=== PATIENT | female | born 1950 | race Caucasian/White ===

== ENCOUNTER 2017-08-19 14:06 | Inpatient (IN) ==
[2017-08-19] MEDS ORDERED: NORMAL SALINE 10 ML SYRINGE FLUSH IVP PRN ×4 (14:18→22:59)
[2017-08-19] MEDS ORDERED: fentaNYL Inj 100 MCG/2 ML VIAL IVP ONE (14:18)
[2017-08-19] MEDS ORDERED: Sodium Chloride 0.9% 1,000 ML PRIMARY IV ONE (14:18)
[2017-08-19] MEDS ORDERED: CEFAZOLIN IV ONE ×2 (14:18→22:59)
[2017-08-19] MEDS ORDERED: DIPH,PERTUSS,TET(ADACEL) VAC/PF 0.5 ML (Tdap) IM ONE (14:18)
[2017-08-19 14:42] LABS: BASOPHILS # (AUTO) 0.04 10*3/UL; BASOPHILS % (AUTO) 0.3 % (0-1); EOSINOPHILS # (AUTO) 0.11 10*3/UL; EOSINOPHILS % (AUTO) 0.8 % (0-8); Hematocrit [HCT] 38.3 % (37.0-47.0); Hemoglobin [HGB] 12.2 g/dL (12.0-16.0); LYMPHOCYTES # (AUTO) 1.38 10*3/uL; MEAN CORPUSCULAR HEMOGLOBIN 26.1 PG (27-31); MEAN CORPUSCULAR HGB CONC 31.9 g/dL (33-37); MEAN CORPUSCULAR VOLUME 81.8 FL (81-99); MEAN PLATELET VOLUME 10.1 FL (7.4-12.2); MONOCYTES # (AUTO) 0.79 10*3/UL (0.3-0.8); NEUTROPHILS # (AUTO) 10.88 10*3/UL; NEUTROPHILS % (AUTO) 82.2 % (50-80); RED BLOOD COUNT 4.68 10^6/uL (4.20-5.40)
[2017-08-19 14:43] LABS: PLATELET MORPHOLOGY COMMENT NORMAL MORPHOLOGY (NORM); RBC MORPHOLOGY COMMENT NORMAL MORPHOLOGY (NORM); WBC MORPHOLOGY COMMENT NORMAL MORPHOLOGY (NORM)
[2017-08-19 14:54] LABS: BLOOD UREA NITROGEN 17 mg/dL (7-22); BUN/CREATININE RATIO 21.25 (6-20); LIPASE 101 IU/L (23-300); SERUM ALBUMIN 3.7 g/dL (3.5-4.8)
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
--- NOTE | 2017-08-19 15:22 | EKG ---
[address] [address] Measurements Intervals Mcgraw Rate: 68 P: 50 NM: 163 QRS: 9 QRSD: 89 T: 49 QT: 392 QTc: 408 Interpretive Statements SINUS RHYTHM No previous ECG available for comparison Electronically Signed On 08-20-17 10:10:15 MDT by Dov Coats MD [email or web address]
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
[2017-08-19 15:59] LABS: BILIRUBIN,URINE NEGATIVE (NEG); CLARITY,URINE Slightly Cloudy (CLEAR); COLOR,URINE YELLOW (Y); GLUCOSE, URINE (UA) NEGATIVE (NEG); NITRATE,URINE POSITIVE (NEG); OCCULT BLOOD,URINE Trace-lysed (NEG); PH,URINE 5.5 (5.0-8.5); PROTEIN,URINE NEGATIVE (NEG); UROBILINOGEN,URINE 0.2 EU/dL (0.2)
[2017-08-19 16:01] LABS: URINE SAMPLE TYPE CATH SPECIMEN
[2017-08-19 16:02] LABS: BACTERIA,URINE MANY; RBC,URINE 0-2 /hpf
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
[2017-08-19] MEDS ORDERED: Lactated Ringers 1,000 ML PRIMARY IV SCH ×2 (18:30→22:59)
[2017-08-19] MEDS ORDERED: MIDAZOLAM 5 MG/1 ML ONE (19:06)
[2017-08-19] MEDS ORDERED: Propofol 200 MG/20 ML VIAL IV ONE (19:06)
[2017-08-19] MEDS ORDERED: fentaNYL Inj 250 MCG/5 ML VIAL ONE (19:06)
[2017-08-19] MEDS ORDERED: SUCCINYLCHOLINE CHLORIDE 20 MG/1 ML - 10 ML ONE (19:06)
[2017-08-19] MEDS ORDERED: LIDOCAINE MPF 2% - 5 ML (20 MG/1 ML) ONE (19:06)
[2017-08-19] MEDS ORDERED: ONDANSETRON 4 MG/2 ML VIAL ONE (19:34)
[2017-08-19] MEDS ORDERED: ONDANSETRON 4 MG/2 ML VIAL IVP ONE (19:35)
[2017-08-19] MEDS ORDERED: DEXAMETHASONE PF 10 MG/1 ML VIAL IVP ONE (19:35)
[2017-08-19] MEDS ORDERED: DEXAMETHASONE PF 10 MG/1 ML VIAL ONE (19:35)
[2017-08-19] MEDS ORDERED: ceFAZolin Inj 2gm (Premix) 2 GM/50 ML BAG IV ONE (19:37)
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
[2017-08-19] MEDS ORDERED: ePHEDrine Inj 50 MG/ML AMP ONE (19:54)
[2017-08-19] MEDS ORDERED: KETOROLAC 30 MG/1 ML VIAL ONE (20:38)
[2017-08-19] MEDS ORDERED: HYDROmorphone 2 MG/1 ML ONE (21:16)
[2017-08-19] MEDS ORDERED: HYDROmorphone 2 MG/1 ML IVP PRN (22:07)
[2017-08-19] MEDS ORDERED: Prochlorperazine Edisylate Inj 10mg/2ml vial IVP PRN (22:07)
--- NOTE | 2017-08-19 22:10 | CRNA.PROGR ---
Anesthesia Time - - Start date: 08/19/17 End date: 08/19/17 - Procedure/Recovery Time Anesthesia : Time In: 19:41 Anesthesia : Time Out: 22:04 Anesthesia : Total Time: 143 - Total Anesthesia Time Total Anesthesia Time (minutes): 143 - Other Weight: 90.718 kg Height: 5 ft 3 in Body Mass Index (BMI): 35.4 Physical Status: P3 Anesthesia Type: General Anesthesia : ET
[2017-08-19] MEDS ORDERED: Acetaminophen 1000mg Inj 1,000 MG/100 ML VIAL IV ONE ×2 (22:18→22:20)
[2017-08-19] MEDS ORDERED: MORPHINE SULFATE 2 MG/1 ML IVP PRN (22:59)
[2017-08-19] MEDS ORDERED: LIDOCAINE W/ SODIUM BICARB 0.5 ML SYR SUBD PRN (22:59)
[2017-08-19] MEDS ORDERED: ONDANSETRON 4 MG/2 ML VIAL IVP PRN ×2 (22:59)
[2017-08-19] MEDS: Lactated Ringers 1,000 ML PRIMARY IV SCH (23:23)
[2017-08-20] MEDS: FAMOTIDINE 20 MG TABLET PO SCH ×3 (00:34→20:31)
[2017-08-20] MEDS: ceFAZolin Inj 2gm (Premix) 2 GM/50 ML BAG IV SCH ×3 (02:01→13:47)
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
[2017-08-20] MEDS: HYDROcodone/IBUPROFEN 7.5 MG/200 MG TABLET PO PRN ×5 (03:52→22:26)
[2017-08-20] MEDS ORDERED: ceFAZolin Inj 2gm (Premix) 2 GM/50 ML BAG IV SCH (05:00)
[2017-08-20] MEDS: LEVOTHYROXINE 100 MCG TABLET PO SCH (05:11)
[2017-08-20] MEDS: LEVOTHYROXINE 75 MCG TABLET PO SCH (05:12)
[2017-08-20 05:34] LABS: BASOPHILS # (AUTO) 0 10*3/UL; BASOPHILS % (AUTO) 0 % (0-1); EOSINOPHILS # (AUTO) 0 10*3/UL; EOSINOPHILS % (AUTO) 0 % (0-8); Hematocrit [HCT] 32.2 % (37.0-47.0); LYMPHOCYTES # (AUTO) 0.35 10*3/uL; MEAN CORPUSCULAR HGB CONC 31.1 g/dL (33-37); MEAN CORPUSCULAR VOLUME 83.9 FL (81-99); MEAN PLATELET VOLUME 10.6 FL (7.4-12.2); MONOCYTES # (AUTO) 0.32 10*3/UL (0.3-0.8); MONOCYTES % (AUTO) 3.8 % (5-15); NEUTROPHILS # (AUTO) 7.66 10*3/UL; NEUTROPHILS % (AUTO) 91.8 % (50-80); RED BLOOD COUNT 3.84 10^6/uL (4.20-5.40)
[2017-08-20 05:52] LABS: PLATELET MORPHOLOGY COMMENT NORMAL MORPHOLOGY (NORM); RBC MORPHOLOGY COMMENT NORMAL MORPHOLOGY (NORM); WBC MORPHOLOGY COMMENT NORMAL MORPHOLOGY (NORM)
[2017-08-20] MEDS ORDERED: Lactated Ringers 1,000 ML PRIMARY IV ONE (05:59)
[2017-08-20] MEDS ORDERED: Sertraline Tab 50 MG TAB PO SCH (09:00)
[2017-08-20] MEDS: Lactated Ringers 1,000 ML PRIMARY IV SCH ×2 (11:21→20:39)
[2017-08-20] MEDS ORDERED: Sertraline Tab 50 MG TAB PO ONE (12:00)
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
--- NOTE | 2017-08-20 13:59 | CRNA.PROGR ---
Anesthesia Note - Progress Notes Anesthesia Progress Note: Pt sitting up in bed resting, she has been tolerating a regular diet well. She denies any residual problems with anesthetic. Her pain is well under control. Current VS stable. Vital Signs - Last Taken Temperature 98.9 F 08/20/17 12:27 Pulse Rate 91 08/20/17 12:27 Respiratory Rate 16 08/20/17 12:27 Blood Pressure 109/56 08/20/17 12:27 Pulse Ox 95 08/20/17 12:27
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
[2017-08-21] MEDS: LEVOTHYROXINE 100 MCG TABLET PO SCH (04:58)
[2017-08-21] MEDS: LEVOTHYROXINE 75 MCG TABLET PO SCH (04:59)
[2017-08-21] MEDS: HYDROcodone/IBUPROFEN 7.5 MG/200 MG TABLET PO PRN ×2 (04:59→09:09)
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
[2017-08-21] MEDS: Sertraline Tab 50 MG TAB PO SCH (09:00)
[2017-08-21] MEDS: Amoxicill/Clav 875/125mg Tab 1 TAB TAB PO SCH ×2 (09:00→20:20)
[2017-08-21] MEDS: FAMOTIDINE 20 MG TABLET PO SCH ×2 (09:02→20:20)
--- NOTE | 2017-08-21 10:59 | ORTHO.PROG ---
Last Taken Vital Signs: Vital Signs - Last Taken Temperature 97.7 F 08/21/17 08:15 Pulse Rate 65 08/21/17 08:15 Respiratory Rate 16 08/21/17 08:15 Blood Pressure 102/47 08/21/17 08:15 Pulse Ox 95 08/21/17 08:15 Subjective: Patient notes pain is well-controlled sensory exam seems to have resolved. Objective: Examination shows that the splint and dressing was removed, the wound is clean and dry there is no fluctuance the drain was pulled since it only withdrew a few cc of fluid there is no evidence of necrosis to the tissues and no fluctuance under the area which was degloved incision clean and dry motion is good by mild amount of swelling. Vital Signs (Last 8 hours) Temp Pulse Resp BP Pulse Ox 08/21/17 08:15 97.7 F 65 16 102/47 95 08/21/17 05:55 95 08/21/17 05:00 97.1 F 73 20 107/54 97 Aerobic and anaerobic culture final today no growth Assessment: Left grade 2 open ankle fracture with soft tissue degloving over the anterior lateral compartment. Patient with ankle dislocation with this open fracture but likely spontaneously reduced Plan: At the current time patient's incision looks wonderful as well as the soft tissues. She was able with the ankle straight up in a year to do a dressing change today and states she did not have significant pain we've redressed this sterilely and placed in L and U-splint back in place. Patient will be returning home where she is in the process of getting set up to see a foot and ankle subspecialist. Discussion with patient was in regard to continuation of care with the subspecialist. Patient will bring x-rays fluoroscopy and CT scan as well as operative report and notes to appointment. Family trying to get appointment set up for either Wednesday or Wednesday upon return. Patient will continue with pain care ice elevation and immobilization.
--- NOTE | 2017-08-21 12:13 | PT.PROG ---
Progress Note Progress Note: S. Patient stated that her foot is very sore. However reported after sitting up that she felt better. O. Patient performed supine to sitting on the edge of bed where she sat x 10 minutes, then ambulated 5 feet non weight bearing with walker then stepped up onto scale and then sat x 10 minutes then transferred back to bed where she was left with call light and alarm. A. Patient tolerated transfers, standing and ambulation fair, she was able to tolerate sitting better today compared to yesterday. Patient would continue to benefit from skilled therapy at this time. P. Continue POC.
[2017-08-21] MEDS: HYDROcodone-APAP 7.5 MG-325 MG TABLET PO PRN ×3 (13:02→21:14)
[2017-08-22] MEDS: HYDROcodone-APAP 7.5 MG-325 MG TABLET PO PRN ×4 (01:09→13:10)
[2017-08-22] MEDS: LEVOTHYROXINE 100 MCG TABLET PO SCH (05:09)
[2017-08-22] MEDS: LEVOTHYROXINE 75 MCG TABLET PO SCH (05:10)
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
[2017-08-22] MEDS: FAMOTIDINE 20 MG TABLET PO SCH (08:37)
[2017-08-22] MEDS: Amoxicill/Clav 875/125mg Tab 1 TAB TAB PO SCH (08:37)
[2017-08-22] MEDS: Sertraline Tab 50 MG TAB PO SCH (08:37)
[2017-08-22] MEDS ORDERED: Amoxicill/Clav 875/125mg Tab 1 TAB TAB PO ONE (08:56)
[2017-08-22 08:57] VITALS: TEMP 98.4; O2SAT 91
--- NOTE | 2017-08-22 10:59 | PT.PROG ---
Progress Note Progress Note: S: Emelia reports that she is doing fair the AM - 4/10 pain reported. Pt agreed to participate in PT. States that last night she got up 7 times to use bedside commode and is doing better with her transfers. O: Tx consisted of: pt performed supine to sitting EOB transfer with CGa x 1 for safety; pt transferred with CGA x 1 and standard walker from EOB to bedside commode. Pt performed toileting activity independently. Pt transferred back to EOB with CGA x 1. Pt performed 5 x sit to stand transfers with min VC for proper hand placement. Pt amb x 10 feet with standard walker and CGA x 1. Pt transferred back to supine in bed with SBA x 1 for safety and was able to scoot self up in bed with VC. Pt was left in bed with alarm set and call light within reach. A: Pt demo improved ability to transfer without assistance. Pt does get dizzy with transfers and requires seated rest break. Pt was on 1 L O2 with all activities. Pt is planning on returning back to [place] later today to further undergo medical tx. P: Plan on d/c for pt to return back to [place] later today to undergo further medical tx.
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
--- NOTE | 2017-08-22 11:42 | DI ---
CT SCAN OF THE LEFT ANKLE, 08/20/2017 7:00 AM : Clinical History: Left ankle fracture. Scans are obtained from the distal tibia and fibula to the plantar surface of the hindfoot without IV contrast. Sagittal and coronal reformatted images are also generated. The patient is status post ORIF of a fracture of the distal fibula with placement of 2 metallic K wir es and a cerclage wire. A drain tube is present along the lateral margin of the distal third of the f ibula and the lateral malleolus. There are comminuted fractures involving the medial and posterior ma rgin of the talus. There is a severely comminuted fracture involving the medial malleolus with multip le small fracture component. Alignment and position of the medial malleolar fracture are near anatomi c. The posterior margin of the medial malleolus is associated with a fracture and with small fragment s within the medial aspect of the ankle mortise. There is a fracture through the midportion of the pl afond that courses in an anterior to posterior orientation. There is a tiny 1-2 mm bony fragment in t he joint space laterally. READIN. Status post ORIF of a fracture of the lateral malleolus with anatomic alignment and position. A d rain tube is present along the lateral margin of the distal fibula. 2. There is a severely comminuted fracture involving the medial malleolus with fracture fragments th at are to numerous to count. There is also a fracture along the posteromedial margin of the talus. Th ere is a linear fracture coursing through the mid sagittal plane of the articular surface of the dist al tibia. Bony fragments are present in the medial aspect of the ankle mortise as well as along the l ateral margin of the tibiotalar joint.
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
[2017-08-22 13:19] VITALS: BP 115/59; RESP 16
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
== END 2017-08-22 14:42 | disposition home or self-care (01) | DRG 493 ==
LOC: ER 14:06 → OPS 17:29 → MED/SURG 22:35
PROVIDERS: ADMIT Surgery; ATTEND Internal Medicine